=== PATIENT | male | born 1970 | race Caucasian/White ===

== ENCOUNTER → 2017-08-24 | Day surgery (SDC) | payer OTHER ==
[~2017-08-24] MED LIST: ACETAMINOPHEN 1,000 MG/100 ML BTL IV ONE; BUPIVACAINE 0.25% W/EPI MPF 30ML VIAL IVP ONE; CEFAZOLIN 2 Gram 2 GM/50 ML BAG IVPB ONE; FENTANYL PF 100MCG/2ML VIAL IV ONE; KETOROLAC 30 MG/ML VIAL IVP ONE; LIDOCAINE 2% MDV (20MG/ML) 20ML VIAL IV ONE; MIDAZOLAM HCL 2MG/2ML VIAL IV ONE; ONDANSETRON HCL IV 4 MG/2 ML VIAL IVP ONE; PROPOFOL 10 MG/ML VIAL IV ONE; SEVOFLURANE 250 ML INH ONE
--- NOTE | 2017-08-25 15:30 | Operative Note ---
DATE OF SURGERY: 08/24/2017 PREOPERATIVE DIAGNOSES: 1. Torn medial meniscus, left knee. 2. Chondromalacia of the left knee. POSTOPERATIVE DIAGNOSES: 1. Torn medial and lateral meniscus, left knee. 2. Synovitis, left knee. 3. Chondromalacia of the medial femoral condyle and patella, left knee. OPERATIVE PROCEDURES: 1. Arthroscopic partial medial and lateral meniscectomy of the left knee. 2. Arthroscopic partial synovectomy of the left knee (2 compartments). 3. Arthroscopic chondroplasty, medial femoral condyle and patella, left knee. DESCRIPTION: This 47-year-old male was taken to the operating room, placed in the supine position on the operating room table, where general anesthesia was induced. The left lower extremity was elevated, it was exsanguinated, and the tourniquet inflated to 300 mm Hg. Arthroscopic knee-gomez applied. Left knee prepped with Hibiclens and draped in the usual sterile fashion. An inferolateral portal was established for the 4 mm arthroscope, and initial evaluation of the joint demonstrated normal appearance of the suprapatellar pouch. Grade 3 chondromalacia of the patella was identified, and through an inferomedial portion, chondroplasty was performed to stabilize the articular cartilage of the patella. The trochlea appeared to be essentially normal. The medial and lateral gutters were examined and found to be normal. The medial compartment was entered and a complex tear of the medial meniscus was present. A large flap tear was identified, as well as horizontal cleavage components. We utilized the basket forceps and rotating shaver to resect the unstable fragments of the meniscus, with the apex of the tear being at approximately the 12:30 position. After resection of the unstable fragments, it was reprobed to confirm to be stable. There was grade 3 chondromalacia of the medial femoral condyle as well, and loose cartilaginous body floating free within the knee, and especially the medial compartment. Chondroplasty was performed to stabilize the articular cartilage of the medial femoral condyle and reprobing confirmed stability. The intercondylar notch was examined and found to be normal. The lateral compartment was entered and a tear of the lateral meniscus was present with both radial and horizontal cleavage components, apex of the tear being at approximately the 1:30 to 2 o'clock position. Utilizing the basket forceps, we resected back to the apex of the tear, and then tapered it in each direction to restore stability to the lateral meniscus. The articular cartilage of the lateral compartment appeared normal. The patient demonstrated synovitis, especially the anterior medial compartment as well as the intercondylar notch and in the infrapatellar area, and synovectomy was performed. The knee was then reexamined. No additional findings. The joint was suctioned, the instruments were removed, the portals infiltrated with 0.25% Marcaine with epinephrine, sterile dressings applied, tourniquet and knee-gomez released, and the patient was taken to the recovery room in satisfactory condition. GROSS PATHOLOGY: This patient demonstrated grade 3 chondromalacia of the medial femoral condyle and patella. There were complex tears of the medial meniscus and lateral meniscus, with the medial meniscal tear being larger. Synovitis also present as described above. CC: DO NIKKO Anderson
== END | disposition home or self-care (01) ==
LOC: SUR 09:48
PROVIDERS: ATTEND Orthopaedic Surgery
DX: S83.232A Complex tear of medial meniscus, current injury, left knee, initial encounter (principal); S83.272A Complex tear of lateral meniscus, current injury, left knee, initial encounter; S83.92XA Sprain of unspecified site of left knee, initial encounter; M22.42 Chondromalacia patellae, left knee
CPT/HCPCS: 29880; 29875; 01400; J1885; J2405; J3010; J0690